=== PATIENT | female | born 1950 ===

== ENCOUNTER 2022-04-22 08:45 | Outpatient (CLI) | payer OTHER | END 2022-04-22 08:47 | disposition home or self-care (01) | LOC: TOM 08:45 | PROVIDERS: ATTEND Internal Medicine Gastroenterology | DX: K56.50 Intestinal adhesions [bands], unspecified as to partial versus complete obstruction (principal); R19.5 Other fecal abnormalities; R10.30 Lower abdominal pain, unspecified ==